=== PATIENT | male | born 1955 | race Caucasian/White ===

== ENCOUNTER 2017-04-27 11:28 | Inpatient (IN) | payer MEDICARE ==
[~2017-04-27] VITALS: Ht 182.9 cm; Wt 110.1 kg
[2017-04-27 13:15] LABS: HEMATOCRIT 43.1 % (39.2-51.8); HEMOGLOBIN 14.9 g/dL (13.7-18.0)
[2017-04-27] MEDS ORDERED: MORPHINE SULFATE 4 MG/ML, 1ML ONE (13:17)
[2017-04-27 13:25] LABS: BLOOD UREA NITROGEN 16 mg/dL (7-18)
[2017-04-27] MEDS ORDERED: morphine SULFATE 10 MG/ML, 1ML IVPush ONE (13:30)
[2017-04-27 15:10] VITALS: BP 133/77
[2017-04-27] MEDS ORDERED: BISACODYL 10 MG SUPP PR PRN (15:30)
[2017-04-27] MEDS ORDERED: ONDANSETRON ODT 4 MG PO PRN (15:30)
[2017-04-27] MEDS ORDERED: DOCUSATE 100 MG CAPSULE PO PRN (15:30)
[2017-04-27] MEDS ORDERED: morphine SULFATE 10 MG/ML, 1ML IVPush PRN (15:30)
[2017-04-27] MEDS ORDERED: ENALAPRILAT 1.25 MG/ML, 2ML IVPush PRN (15:30)
[2017-04-27] MEDS ORDERED: ONDANSETRON 2MG/ML, 2ML IVPush PRN (15:30)
[2017-04-27 19:36] VITALS: BP 143/77
[2017-04-28 01:48] VITALS: BP 148/83
[2017-04-28] MEDS: LACTATED RINGERS 1,000 ML IV SCH ×2 (03:27→17:43)
[2017-04-28 05:23] LABS: HEMATOCRIT 43.1 % (39.2-51.8); HEMOGLOBIN 14.8 g/dL (13.7-18.0); WHITE BLOOD COUNT 10.5 x10^3/uL (3.4-10)
[2017-04-28 05:32] LABS: BLOOD UREA NITROGEN 14 mg/dL (7-18)
[2017-04-28 07:32] VITALS: BP 154/84
[2017-04-28] MEDS ORDERED: morphine SULFATE 10 MG/ML, 1ML IVPush ONE (13:30)
[2017-04-28 13:57] VITALS: BP 151/83
[2017-04-28] MEDS ORDERED: MIDAZOLAM 1 MG/ML, 2ML ONE (17:24)
[2017-04-28] MEDS ORDERED: FENTANYL PF 100 MCG/2ML ONE (17:24)
[2017-04-28] MEDS ORDERED: CEFAZOLIN 1,000 MG ONE (18:38)
[2017-04-28] MEDS ORDERED: DEXAMETHASONE 4 MG/ML, 1ML ONE (18:38)
[2017-04-28] MEDS ORDERED: ONDANSETRON 2MG/ML, 2ML ONE (18:38)
[2017-04-28] MEDS ORDERED: SUCCINYLCHOLINE 20 MG/ML, 10ML ONE (18:38)
[2017-04-28] MEDS ORDERED: ROCURONIUM 10 MG/ML ONE (18:38)
[2017-04-28] MEDS ORDERED: PROPOFOL 10 MG/ML, 20ML ONE (18:38)
[2017-04-28] MEDS ORDERED: HYDROmorphone 2 MG/ML, 1ML ONE (19:51)
[2017-04-28] MEDS ORDERED: ONDANSETRON 2MG/ML, 2ML IVPush PRN (21:00)
[2017-04-28] MEDS ORDERED: morphine SULFATE 10 MG/ML, 1ML IV PRN (21:00)
[2017-04-28] MEDS ORDERED: hydrALAzine 20 MG/ML, 1ML IV PRN (21:00)
[2017-04-28] MEDS ORDERED: ACETAMINOPHEN 325 MG TABLET PO PRN (21:00)
[2017-04-28] MEDS ORDERED: METOCLOPRAMIDE 5 MG/ML, 2ML IV PRN (21:00)
[2017-04-28] MEDS ORDERED: LABETALOL 5MG/ML, 20ML IV PRN (21:00)
[2017-04-28] MEDS ORDERED: HYDROmorphone 1 MG/ML, 1ML IV PRN (21:00)
[2017-04-28] MEDS ORDERED: FENTANYL PF 100 MCG/2ML IV PRN (21:00)
[2017-04-28] MEDS ORDERED: OXYcodone 5 MG/5 ML ORAL.SOL UDC PO PRN (21:00)
[2017-04-28] MEDS ORDERED: OXYcodone 5 MG/5 ML ORAL.SOL UDC ONE (21:28)
[2017-04-28] MEDS ORDERED: ACETAMINOPHEN 650 MG/20.3 ML UDC ONE (21:28)
[2017-04-28 22:58] VITALS: BP 117/72
[2017-04-29] MEDS: CEFAZOLIN PMX 2GM/50ML 50 ML IVPB SCH ×2 (03:01→10:44)
[2017-04-29 03:44] VITALS: BP 128/77
[2017-04-29 05:07] LABS: HEMATOCRIT 44.4 % (39.2-51.8); HEMOGLOBIN 14.9 g/dL (13.7-18.0); WHITE BLOOD COUNT 12.4 x10^3/uL (3.4-10)
[2017-04-29 05:17] LABS: BLOOD UREA NITROGEN 14 mg/dL (7-18)
[2017-04-29] MEDS ORDERED: PROMETHAZINE 25 MG/ML, 1ML IM PRN (05:30)
[2017-04-29] MEDS: ENOXAPARIN 40 MG/0.4 ML SQ SCH (05:50)
[2017-04-29] MEDS: LACTATED RINGERS 1,000 ML IV SCH (05:50)
[2017-04-29 06:37] VITALS: BP 113/68
[2017-04-29] MEDS: OXYcodone IR 5MG TABLET PO PRN ×2 (10:44→19:28)
[2017-04-29 13:47] VITALS: BP 113/70
[2017-04-29] MEDS: INSULIN ASPART 100 UNITS/ML, PEN SQ-INSULIN SCH ×2 (15:42→21:00)
[2017-04-29 18:28] VITALS: BP 121/66
[2017-04-29] MEDS: KETOROLAC 30 MG/1 ML IV SCH (21:08)
[2017-04-30 01:37] VITALS: BP 115/67
[2017-04-30] MEDS: ENOXAPARIN 40 MG/0.4 ML SQ SCH (05:24)
[2017-04-30] MEDS: KETOROLAC 30 MG/1 ML IV SCH ×2 (05:24→18:44)
[2017-04-30 05:44] LABS: HEMATOCRIT 38.9 % (39.2-51.8); WHITE BLOOD COUNT 9.1 x10^3/uL (3.4-10)
[2017-04-30 06:14] LABS: BLOOD UREA NITROGEN 18 mg/dL (7-18)
[2017-04-30] MEDS: INSULIN ASPART 100 UNITS/ML, PEN SQ-INSULIN SCH (07:00)
[2017-04-30 08:56] VITALS: BP 127/70
[2017-04-30 13:57] VITALS: BP 129/71
[2017-04-30 18:39] VITALS: BP 155/82
[2017-04-30] MEDS ORDERED: KETOROLAC 30 MG/1 ML ONE (18:42)
[2017-04-30 23:56] VITALS: BP 121/70
[2017-05-01 02:46] VITALS: BP 146/83
[2017-05-01] MEDS: ENOXAPARIN 40 MG/0.4 ML SQ SCH (05:51)
[2017-05-01 07:25] VITALS: BP 129/77
[2017-05-01] MEDS ORDERED: CELE200C PO (14:12)
[2017-05-01] MEDS ORDERED: ENOX40SY4 SQ (14:13)
[2017-05-01 16:09] VITALS: BP 144/82
== END 2017-05-01 16:30 | DRG 470 ==
LOC: ED 12:37 → EDIP 13:26 → 4NOR 15:12
PROVIDERS: ADMIT Internal Medicine; ATTEND Internal Medicine
PROC: 0SR903Z Replacement of Right Hip Joint with Ceramic Synthetic Substitute, Open Approach (ICD-10-PCS; principal; 2017-04-28 16:30)
DX: S72.011A Unspecified intracapsular fracture of right femur, initial encounter for closed fracture (principal); E44.0 Moderate protein-calorie malnutrition; I11.9 Hypertensive heart disease without heart failure; E11.65 Type 2 diabetes mellitus with hyperglycemia; Z68.32 Body mass index [BMI] 32.0-32.9, adult; I10 Essential (primary) hypertension; W01.0XXA Fall on same level from slipping, tripping and stumbling without subsequent striking against object, initial encounter; D72.829 Elevated white blood cell count, unspecified; E78.5 Hyperlipidemia, unspecified; E78.00 Pure hypercholesterolemia, unspecified; M25.551 Pain in right hip; I44.7 Left bundle-branch block, unspecified; X50.0XXA Overexertion from strenuous movement or load, initial encounter; Z88.6 Allergy status to analgesic agent; Z88.5 Allergy status to narcotic agent; Z80.3 Family history of malignant neoplasm of breast; Z80.6 Family history of leukemia; Z91.14 Patient's other noncompliance with medication regimen; Y92.009 Unspecified place in unspecified non-institutional (private) residence as the place of occurrence of the external cause; Y99.8 Other external cause status; Z90.89 Acquired absence of other organs
CPT/HCPCS: 36415; 71010; 80048; 81003; 82040; 82306; 82330; 82962; 83036; 85025; 85610; 93005; 99285; J0690; J1100; J1170; J1650; J1885; J2250; J2405; J2550; J2704; J3010; J0330; J2270; J7120